=== PATIENT | female | born 2000 | race Caucasian/White ===

== ENCOUNTER → 2023-11-29 06:13 | Day surgery (SDC) | payer OTHER, SELFPAY | LOC: GI 06:13 | PROVIDERS: ATTENDING PHYSICIAN Internal Medicine | DX: R10.30 Lower abdominal pain, unspecified (principal); R19.4 Change in bowel habit; R12 Heartburn; R11.0 Nausea | CPT/HCPCS: 45380; 43239; 88305; 88342 ==